=== PATIENT | male | born 1990 | race Caucasian/White ===

== ENCOUNTER 2018-07-17 01:08 | Emergency (ER) | payer OTHER ==
[2018-07-17] MEDS ORDERED: NS 1,000 ML IV ONE (01:24)
[2018-07-17] MEDS ORDERED: ONDANSETRON 4 MG/2 ML VIAL IVP ONE (01:24)
--- NOTE | 2018-07-17 01:30 | EDPHY ---
H & P Stated Complaint: N/v since 1800, chills, fever, Time Seen by Provider: 07/17/18 01:15 HPI/ROS: HPI The patient presents with nausea, vomiting for the last several hours. The patient began to feel weak and tired at about 6:00 p.m. Tonight. Then at about 8:00 p.m. He developed nonbloody nonbilious emesis. He has had episodes of vomiting about every 2 hr. He does not have any abdominal pain. He has subjective fevers. He has had several days of cough, rhinorrhea, sore throat which he felt were improving. His boss at work is sick with a stomach bug he says. REVIEW OF SYSTEMS 10 systems were reviewed and negative with the exception of the elements mentioned in the history of present illness. 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, taking naltrexone PHYSICAL General Appearance: Alert, no distress Eyes: Pupils equal and round no pallor or injection ENT, Mouth: Mucous membranes moist Respiratory: There are no retractions, lungs are clear to auscultation Cardiovascular: Regular rate and rhythm Gastrointestinal: Abdomen is soft and non-tender, no masses, bowel sounds normal Neurological: A&O, moves all extremities Skin: Warm and dry, no rashes Musculoskeletal: Neck is supple non tender Extremities: symmetrical, full range of motion Psychiatric: Patient is oriented X 3, there is no agitation Source: Patient Exam Limitations: No limitations - Personal History Current Tetanus Diphtheria and Acellular Pertussis (TDAP): Yes - Medical/Surgical History Hx Asthma: No Hx Chronic Respiratory Disease: No Hx Diabetes: No Hx Cardiac Disease: No Hx Renal Disease: No Hx Cirrhosis: No Hx Alcoholism: No Hx HIV/AIDS: No Hx Splenectomy or Spleen Trauma: No Other PMH: Opiate recovery 2019 - Social History Smoking Status: Never smoked Constitutional: Initial Vital Signs Temperature (C) 36.3 C 07/17/18 01:11 Heart Rate 104 H 07/17/18 01:11 Respiratory Rate 18 07/17/18 01:11 Blood Pressure 107/90 H 07/17/18 01:11 O2 Sat (%) 100 07/17/18 01:11 O2 Delivery Mode Room Air Allergies/Adverse Reactions: No Known Allergies Allergy (Unverified 07/17/18 01:11) Home Medications: Medication Instructions Recorded Ondansetron Odt [Zofran Odt 4 mg 4 mg PO Q4 PRN #10 tab 07/17/18 (*)] Medical Decision Making Differential Diagnosis: This is a 28-year-old male who presents with nausea and vomiting associated with weakness for the last several hours. On exam, slightly tachycardic, afebrile, well-appearing. His abdominal exam is benign. Differential diagnosis includes viral gastroenteritis, toxin mediated enterocolitis, less likely appendicitis or diverticulitis. Plan for IV fluids, Zofran, basic labs. Patient was observed for about 2 hr. Labs demonstrated leukocytosis which I suspect is related to his vomiting. Other lab work unremarkable. Repeat abdominal exam is benign. Patient able to tolerate fluids by mouth. He will be discharged home with prescription for Zofran. He is in agreement with this plan. - Data Points Laboratory Results: Laboratory Results 07/17/18 01:27 07/17/18 01:35 Medications Given: Discontinued Medications Sodium Chloride (Ns) 1,000 mls @ 0 mls/hr IV EDNOW ONE; Wide Open PRN Reason: Protocol Stop: 07/17/18 01:25 Last Admin: 07/17/18 01:30 Dose: 1,000 mls Ondansetron HCl (Zofran) 4 mg IVP EDNOW ONE Stop: 07/17/18 01:25 Last Admin: 07/17/18 01:30 Dose: 4 mg Ondansetron HCl (Zofran Odt 4 Mg Prepack#2) 1 btl TAKEHOME EDNOW ONE Stop: 07/17/18 03:08 Last Admin: 07/17/18 03:18 Dose: 1 btl Departure - Departure Disposition: Home, Routine, Self-Care Clinical Impression: Weakness Nausea & vomiting Qualifiers: Vomiting type: unspecified Vomiting Intractability: non-intractable Qualified Code(s): R11.2 - Nausea with vomiting, unspecified Condition: Good Instructions: Ondansetron (By mouth), Dehydration (ED), Acute Nausea and Vomiting (ED) Additional Instructions: Please make sure to try clear fluids in small amounts 1st. If your feeling okay , then you can try other foods. Referrals: Yissel Montgomery MD [Primary Care Provider] - As per Instructions Prescriptions: Ondansetron Odt [Zofran Odt 4 mg (*)] 4 mg PO Q4 PRN #10 tab PRN Reason: Nausea/Vomiting, Can'T Take Po
[2018-07-17 01:49] LABS: PLATELET COUNT 323 10^3/uL (150-400)
[2018-07-17 02:29] VITALS: BP 107/55
[2018-07-17] MEDS ORDERED: ONDANSETRON 4MG PREPACK#2 BTL TAKEHOME ONE (03:07)
== END 2018-07-17 03:20 | disposition home or self-care (01) ==
DX: R11.2 Nausea with vomiting, unspecified (principal); E86.9 Volume depletion, unspecified
CPT/HCPCS: 96374; J2405

== ENCOUNTER 2018-12-02 20:59 | Emergency (ER) | payer OTHER | END 2018-12-02 22:05 | disposition home or self-care (01) ==